=== PATIENT | female | born 1995 | race Caucasian/White ===

== ENCOUNTER 2018-09-10 05:07 | Inpatient (IN) | payer MEDICAID ==
[~2018-09-10] VITALS: Ht 167.6 cm; Wt 98.0 kg
[2018-09-10 05:13] VITALS: Ht 167.6 cm; Wt 98.0 kg
--- NOTE | 2018-09-10 06:30 | NUR ---
PATIENT SEEN WITH COMPLAINT OF LOWER ABDOMINAL PAIN,N/V.D. SEEN BY SALINE LOCK INSERTED. PATIENT MEDICATED WITH ZOFRAN. FLUID BOLUS IS INFUSING.
--- NOTE | 2018-09-10 07:00 | NUR ---
PATIENT WENT TO HAVE CT SCAN DONE
--- NOTE | 2018-09-10 07:03 | NUR ---
PT TO CT TEST AREA VIA STRETCHER,FAHEEM,amalia.awaits test results,reevaluations.
[2018-09-10 07:10] LABS: UA SPECIFIC GRAVITY 1.025 (1.005-1.035); microscopic required? YES; urine erythrocyte 3+ (NEGATIVE)
[2018-09-10 07:12] LABS: PLATELET COUNT 328 x10^3mcL (130-400)
[2018-09-10 07:22] LABS: CARBON DIOXIDE 29.7 mmol/L (21-32); CHLORIDE SERUM 104 mmol/L (98-107); CREATININE SERUM 0.8 mg/dL (0.6-1.0); GFR1 > 60 mL/min; GLUCOSE SERUM 124 mg/dL (74-106); SODIUM SERUM 141 mmol/L (136-145)
--- NOTE | 2018-09-10 07:22 | NUR ---
PT BACK FROM ct test area via maurisio mo nad.mother bedside.awaits reevaluations.
[2018-09-10 07:26] LABS: ALBUMIN 3.9 g/dL (3.4-5.0); ALKALINE PHOSPHATASE 82 U/L (46-116); ALT/SGPT 22 U/L (14-59); AST/SGOT 7 U/L (15-37); BILIRUBIN TOTAL 0.83 mg/dL (0.20-1.00); LIPASE 83 IU/L (73-393)
[2018-09-10 07:27] LABS: AMPHETAMINE QUAL UR NONE DETECTED (See below)
[2018-09-10 07:27] LABS: TOTAL PROTEIN, SERUM 8.4 g/dL (6.4-8.2)
--- NOTE | 2018-09-10 07:38 | NUR ---
RESTING ER # 14 HOB @ 45 DEGREES SR UP,NAD.ASLEEP AT TIMES.AWAITS test results,reevaluations.mother stepped out.
--- NOTE | 2018-09-10 07:42 | NUR ---
airplane charter clerk called for critical ct results.er made aware.
--- NOTE | 2018-09-10 07:55 | NUR ---
er md at bedside for reevaluations.amalia forde.vs as shown.mother bedside.
--- NOTE | 2018-09-10 08:51 | NUR ---
resting er # 14 hob @ 45 degrees sr up,amalia forde.parents at bedside.pt tolerated procedures with no incidents.awaits md consult,reevaluations.
[2018-09-10 09:04] LABS: BAND NEUTROPHIL 3 % (0-10); BASOPHIL 0 % (0-2); MONOCYTE 2 % (0-7); SEGMENTED NEUTROPHILS 92 % (37-75)
[2018-09-10 09:05] LABS: rbc morphology (normal/abnorm) ABNORMAL (NORMAL)
[2018-09-10 09:06] LABS: PLATELET MORPHOLOGY PLATELETS NORMAL
--- NOTE | 2018-09-10 09:14 | NUR ---
med student from surgery at bedside.awakened.awaits reevaluations.
--- NOTE | 2018-09-10 09:38 | NUR ---
AMBULATED TO/FROM BATHROOM WITH mother with no problems.iv meds resumed.pt tolerated procedures with no incidents.amalia forde.awaits reevaluations.
--- NOTE | 2018-09-10 10:05 | NUR ---
resting asleep at times,mother bedside,nad.iv meds infusing well via iv pump.pt tolerated procedures with no incidents.awaits o.r./surgery motor transport inspector/tech.
--- NOTE | 2018-09-10 10:12 | NUR ---
PT ENDORSED TO/ACCEPTED BY TANIA RN,ROOM 232B PRIMARY RN.
--- NOTE | 2018-09-10 10:45 | NUR ---
TO ROOM 232 B VIA WHEELCHAIR,ARLYN MAYEN.MOTHER AND ADULT FEMALE RELATIVE WITH PT.AWAITS REEVALUATIOONS.
--- NOTE | 2018-09-10 10:49 | NUR ---
PT ENDORSED TO/ACCEPTED BY ROMANA GARCIA FROM SURGERY SUITE.
[2018-09-10 11:06] VITALS: BP 107/51
--- NOTE | 2018-09-10 11:22 | NUR ---
AT 1100 - RECEIVED PATIENT FROM ER NURSE. SETTLED IN ROOM, ORIENTED TO SURROUNDINGS. ADMITTED WITH ABDOMINAL PAIN AND DX OF APPENDECITIS FOR LAP APPY. HISTORY OBTAINED FROM MYTENT. MOTHER AND SISTER AT BEDSIDE. CONSNET FOR LAPAROSCOPIC APPENDECTOMY, POSSIBLE OPEN, SIGNED BY PATIENT. CHLORHEXIDINE BODY WIPES SKIN PREP DONE. PATIENT PREPARED FOR SURGERY. AT 1122 - TAKEN TO OR.
--- NOTE | 2018-09-10 13:37 | NUR ---
SPOKE WITH DR JORDAN. SHE WILL GO AND SPEKA WITH PATIENT AND SON REGARDING THE COUGHING OF BLOOD.
--- NOTE | 2018-09-10 13:39 | NUR ---
RECEIVED PT FROM OR, PT IS VERY DROWSY AT THIS MOMENT BUT ABLE TO ANSWER THE QUESTION WHILE AWAKE, LUNG SOUND CLEAR BILATERAL, NO S/S OF SOB, BOWEL SOUND ABCSENT. THERE ARE 4 BANDAID AT ABD, NO BLEEDING, PT C/O MILD PAIN AT THIS MOMENT. IV AT RIGHT AC, DRESSING INTACT. ALL ADLS ASSIST, ALL NEED MET, FAMILY AT BEDSIDE, WILL CONTINUE TO MONITOR THE PT.
[2018-09-10 13:42] VITALS: BP 90/50
--- NOTE | 2018-09-10 15:18 | NUR ---
AT 1350 - IV INFUSION OF D5 NS COMMENCED AT 80 ML/HR. NO C/O PAIN. DRESSINGS DRY AND INTACT. PATIENT TAKING SMALL SIPS CLEAR LIQUIDS PO. FAMILY AT BEDSIDE AND ATTENTIVE TO PATIENT.
--- NOTE | 2018-09-10 15:51 | NUR ---
NASAL SWAB FOR MRSA COLLECTED AND TAKEN TO LAB. PATIENT RESTING QUIETLY. NO C/O PAIN. SCDS TO BLE IN PLACE.
[2018-09-10 17:33] VITALS: BP 103/55
--- NOTE | 2018-09-10 17:50 | NUR ---
SITTING UP INB ED FOR DINNER. TOLERATING CLEAR LIQUID DIET. NO C/O NAUSEA OR VOMITING. REPORTS PAIN UNDER CONTROL. IV INFUSING D5NS AT 80 ML/HR. HAS NOT VOIDED POST OP YET. FAMILY AT BEDSIDE.WILL ENDORSE CARE TO NIGHT NURSE.
--- NOTE | 2018-09-10 18:20 | NUR ---
PATIENT AMBULATED TO BATHROOM. VOIDED PSOT-OP. NOW BACK IN BED. NOTED SPOTTING ON LLQ BAND-AID. WILL CONTINUE TO MONITOR FOR BLEEDING. VSS. AFEBRILE. MOTHER REMAINS AT BEDSIDE.
[2018-09-10 20:17] VITALS: BP 93/55
--- NOTE | 2018-09-10 20:18 | NUR ---
RECIEVED PT FROM DAY NURSE. PT RESTING IN BED. DENIES PAIN AT THIS TIME. AOX4, CALM AND COOPERATIVE. M/S, DENIES CP,N/V, DIZZINESS AND PALPATIONS. ABD SOFT AND ROUND, DENIES PASSING GAS, STATES IS BURPING. AMBULATES WELL. 4 BANDAIDS OVER SURGICAL INCISION SITES. CDI. RAC IV. CDI AND INFUSING. BED AT LOWEST POSITION. CALL LIGHT WITHIN REACH. WILL CONTINUE TO MONITOR.
--- NOTE | 2018-09-10 21:10 | NUR ---
PT COMPLAIINING OF 5/10 LLQ PAIN. MEDICATED PT WITH PRN NORCO. WILL MONITOR.
--- NOTE | 2018-09-11 00:19 | NUR ---
PT RESTING IN BED COMFORTABLY. NO S/S OF PAIN AT THIS TIME. BREATHING EVEN AND UNLABORED. MOTHER AT BEDSIDE. BED AT LOWEST POSITION. CALL LIGHT WITHIN REACH. WILL CONTINUE TO MONITOR.
--- NOTE | 2018-09-11 02:56 | NUR ---
PT COMPLAINING OF MILD HEADACHE. MEDICATED WITH PRN TYLENOL. WILL CONTINUE TO MONITOR.
--- NOTE | 2018-09-11 04:25 | NUR ---
PT RESTING IN BED COMFORTABLY, NO S/S OF PAIN AT THIS TIME. BREATHING EVEN AND UNLABORED. CALL LIGHT WITHIN REACH. WILL CONTINUE TO MONITOR.
[2018-09-11 05:38] VITALS: BP 103/60
--- NOTE | 2018-09-11 06:10 | NUR ---
PT RESTING IN BED COMFORTABLY, MOTHER AT BEDSIDE. COMPLAINING OF SLIGHT RLQ PAIN, DENIES NEED FOR PAIN MEDS AT THIS TIME. BREATHING EVEN AND UNLLABORED. NO ACUTE DISTRESS NOTED. SURGICAL INCISION BANDAID CDI. IV TO RAC CDI, INFUSING. BED AT LOWEST POSITION. CALL LIGHT WITHIN REACH. WILL ENDORSE TO DAY NURSE.
[2018-09-11 06:51] LABS: CALCIUM 7.9 mg/dL (8.5-10.1); CARBON DIOXIDE 24.7 mmol/L (21-32); CHLORIDE SERUM 106 mmol/L (98-107); CREATININE SERUM 0.9 mg/dL (0.6-1.0); GFR1 > 60 mL/min; GLUCOSE SERUM 95 mg/dL (74-106); POTASSIUM SERUM 3.4 mmol/L (3.5-5.1); SODIUM SERUM 140 mmol/L (136-145)
[2018-09-11 07:07] LABS: BASOPHIL % 0.6 % (0-2); PLATELET COUNT 267 x10^3mcL (130-400); RED CELL DISTRIBUTION WIDTH 13.1 % (11.5-14.5)
--- NOTE | 2018-09-11 07:58 | NUR ---
AT 0715 - RECEIVED PATIENT FROM NIGHT NURSE. SITTING IN CHAIR. NO C/O PAIN AT THIS TIME. IV INFUSING D5NS AT 80 ML/HR. NO NEW BLEEDING ON SURGICAL DRESSINGS. MOTHER AT BEDSIDE. AT 0745 - EATING CLEAR LIQUID BREAKFAST. PATIENT REPROTS PASSING GAS. ENCOURAGED TO AMBULATE AND USE INSENTIVE SPIROMETER.
[2018-09-11 09:20] VITALS: BP 100/52
[2018-09-11 12:28] VITALS: BP 99/56
--- NOTE | 2018-09-11 12:38 | NUR ---
AT 0940 - C/O NAUSEA. MEDICATED WITH ZOFRAN PER EMAR. ALSO GIVEN NORCO FOR MILD ABDOMINAL PAIN. PATIENT C/O CHILLS. CURRENT TEMP 98.5 AT 1100 - RESTING QUIETLY. FAMILY AT BEDSIDE. AT 1230 - PATIENT HAS BEEN AMBULATING IN HALLWAY. NO FURTHER NAUSEA. TEMP NOW 102.4. CALL PLACED FOR [employer] DEVELOPER [employer] TO NOTIFY. COOLING NMEASURES APPLIED - COOL ROOM AND ICE PACKS. PATIENT'S MOTHER REPORTS THAT PATIENT HAD A SEIZURE WHEN SHE WAS YOUNG DUE TO FEVER AND MOTHER IS CONCERNED ABOUT FEVER. AT 1235 - RECEIVED ORDERS FOR TORADOL AND BLOOD CULTURES.
--- NOTE | 2018-09-11 12:52 | NUR ---
MEDICATED WITH TORADOL PER EMAR. BLOOD BEING DRAWN FOR BLOOD CULTURES.
[2018-09-11 13:57] VITALS: BP 98/47
--- NOTE | 2018-09-11 13:59 | NUR ---
TEMP NOW 100.0. PATIENT RESTING QUIETLY. COOLING MEASURES STIL IN PALCE.
--- NOTE | 2018-09-11 15:12 | NUR ---
PATIENT REPORTS FEELING BETTER. TOLERATING FULL LIQUID DIET WITHOUT ANY NAUSEA OR VOMITING.
[2018-09-11 16:42] VITALS: BP 94/40
--- NOTE | 2018-09-11 18:08 | NUR ---
PATIENT C/O CHILLS AGAIN. TEMP 100.9. MEDICATED WITH TYLANOL PER EMAR. BP 98/54. HR 103. CHARGE NURSE CONTACTED DR FERRERA. HE WILL REVIEW FOR POSSIBLE SEPSIS. NO C/O ABDOMINAL PAIN. ABDOMEN SOFT BUT DISTENDED, NOT PASSING GAS THIS PM. NO NAUSEA OR VOMITING. TOLERATING FULL LIQUID DIET. IV INFUSING D5NS AT 50 ML/HR. AMBULATES TO BATHROOM FOR TOILET NEEDS. FAMILY IN ROOM AND ATTENTIVE TO PATIENT. WILL ENDORSE CARE TO NIGHT NURSE.
--- NOTE | 2018-09-11 19:00 | NUR ---
PT RECEIVED FROM THE DAY SHIFT RN, PT IS ALERT AND ORIENTED X4, CALM AND COOEPRATIVE WITH CARE. BANDAGES IN PLACE ON THE ABDOMEN X4, BANDAGES ARE CDI, PT STATES BLOATED FEELING IN HER ABDOMEN, PT STATES NO PAIN AT THIS TIME, BUT THERE IS PAIN WITH MOVEMENT, BUT WITH MOVEMENT PAIN IS A 2/10. FAMILY IS AT THE BEDSIDE, SAFETY AND COMFORT MEASURES MAINTAINED, BED IN LOWEST POSITION, CALL LIGHT WITHIN REACH.
--- NOTE | 2018-09-11 19:54 | NUR ---
DR FERRERA MADE AWARE OF TEMPERATURE 101.5. PER DR FERRERA NO FURTHER ORDERS GIVEN. COOLING MEASURES IN PLACE AND WILL MEDICATE WITH TORADOL.
[2018-09-11 20:11] VITALS: BP 103/65
--- NOTE | 2018-09-12 01:25 | NUR ---
PT IS RESTING IN BED WITH EYES CLOSED, NO ACUTE DISTRESS NOTED. NO S/S OF PAIN NOTED. PT HAS BEEN CALM AND COOPERATIVE WITH CARE, MOTHER IS AT THE BEDSIDE. PT HAS BEEN ALERT AND ORIENTED X4, SAFETY AND COMFORT MEASURES MAINTAINED, BED IN LOWEST POSITION, CALL LIGHT WITHIN REACH.
--- NOTE | 2018-09-12 05:21 | NUR ---
PT HAS RESTED IN LONG INTERVALS THROUGHOUT THE SHIFT. PT HAS BEEN CALM AND COOPERATIVE WITH CARE. NO ACUTE DISTRESS NOTED. PT MOTHER IS AT THE BEDSIDE. IV INFUSING D5 NS AT 80ML/HR AT THIS TIME. SAFETY AND COMFORT MEASURES MAINTAINED, BED IN LOWEST POSITION, CALL LIGHT WITHIN REACH, ALL QUESTIONS AND CONCERNS ADDRESSED, WILL ENDORSE CONTINUITY OF CARE TO THE ONCOMING RN.
[2018-09-12 05:38] VITALS: BP 124/71
--- NOTE | 2018-09-12 07:23 | NUR ---
PATIENT A/OX4, ABLE TO MAKE NEEDS KNOWN AND FOLLOW COMMANDS. DENIES HEADACHE, CP OR FEELING SOB. LUNGS CTA, NO RESP DISTRESS NOTED ON RA, BREATHING E/U. PERIPHERAL PULSES PALPABLE, NO EDEMA. BOWEL SOUNDS ACTIVE, LAST BM REPORTED LAST NIGHT X2, DENIES N/V/DIARREA, ADMITSS TO PASSING GAS. ABD SOFT WITH X4 INCISIONS, BANDAGES CHANGED, CDI. DENIES PAIN AT REST AT THIS TIME. IV SITE WNL, NO REDNESS/SWELLING. PATIENT SITTING AT EDGE OF BED, BED AT LOWEST POSITION, MOTHER AT BEDSIDE. CALL LIGHT WITHIN REACH.
[2018-09-12 08:18] VITALS: BP 105/56
--- NOTE | 2018-09-12 08:46 | NUR ---
PATIENT EATING FULL LIQUID BREAKFAST MEAL, REPORTS FEELING MILD PAIN AND NAUSEA BUT GOING AWAY AFTER DRINKING MILK. INFORMED PATIENT IF IT DOESNT GO AWAY OR IF IT WORSENS, WILL ADMINISTER MEDICATIONS FOR PAIN AND NAUSEA. ANNE VERBALIZED UNDERSTANDING. TEMP THIS AM 99.6. DENIES FEELINGS CHILLS. WILL CONT TO MONITOR.
[2018-09-12 09:40] LABS: CALCIUM 8.1 mg/dL (8.5-10.1); CARBON DIOXIDE 24.1 mmol/L (21-32); CHLORIDE SERUM 106 mmol/L (98-107); CREATININE SERUM 0.8 mg/dL (0.6-1.0); GFR1 > 60 mL/min; GLUCOSE SERUM 80 mg/dL (74-106); POTASSIUM SERUM 3.4 mmol/L (3.5-5.1); SODIUM SERUM 140 mmol/L (136-145)
[2018-09-12 09:45] LABS: PLATELET COUNT 234 x10^3mcL (130-400); RED CELL DISTRIBUTION WIDTH 13.1 % (11.5-14.5)
[2018-09-12 11:13] LABS: BAND NEUTROPHIL 8 % (0-10); BASOPHIL 0 % (0-2); MONOCYTE 1 % (0-7); SEGMENTED NEUTROPHILS 75 % (37-75)
[2018-09-12 11:16] LABS: PLATELET MORPHOLOGY PLATELETS NORMAL
--- NOTE | 2018-09-12 13:45 | NUR ---
PATIENT TOLERATED LUNCH MEAL WELL, DENIES PAIN OR NAUSEA. SITTING UP ON CHAIR, FAMILY AT BEDSIDE. NO SIGN OF ACUTE DISTRESS.
[2018-09-12 16:43] VITALS: BP 107/54
--- NOTE | 2018-09-12 18:30 | NUR ---
PATIENT TOLERATED DINNER MEAL WELL, DENIES ABD PAIN OR NAUSEA. ADMITS TO PASSING GAS TODAY AND HAD 4-5 LOOSE BM'S THIS MORNING, DENIES DIARRHEA. ABD SOFT, INCISIONS X4 W/ BANDAIDS CDI. UTILIZING INCENTIVE SPIROMETER ADEQUATELY AND REINFORCED. CALL LIGHT WITHIN REACH. WILL CONT TO MONITOR AND ENDORSE TO NOC NURSE.
--- NOTE | 2018-09-12 20:04 | NUR ---
PT RECIEVED FROM DAY NURSE, PT RESTING IN CHAIR COMFORTABLY. DENIES PAIN AT THIS TIME. S/P LAP APPY, POST OP DAY 2. MED/SURG PT. DENIES CP, N/V, DIZZINESS, AND PALPATATIONS. BREATHING E/U ON RA. DENIES SOB. ABD SOFT AND ROUND, DENIES PAIN TO PALPATATION. X4 SURGICAL INCISIONS CDI WITH BANDAIDS. ALL QUESTIONS AND CONCERNS ADDRESSED. BED AT LOWEST POSITION. CALL LIGHT WITHIN REACH. WILL CONTINUE TO MONITOR.
[2018-09-12 20:42] VITALS: BP 99/64
--- NOTE | 2018-09-12 23:30 | NUR ---
PT COMPLAINING OF 6/10 PAIN AT SURGICAL SITE. MEDICATED PT WITH PRN NORCO. WILL CONTINUE TO MONITOR.
--- NOTE | 2018-09-13 | NUR ---
PT RESTING IN BED COMFORTABLY. NO S/S OF PAIN AT THIS TIME. BREATHING E/U ON RA. NO SIGNS OF ACUTE DISTRESS AT THIS TIME. BED AT LOWEST POSITION. CALL LIGHT WITHIN REACH. WILL CONTINUE TO MONITOR.
[2018-09-13 05:56] VITALS: BP 103/51
--- NOTE | 2018-09-13 06:33 | NUR ---
PT RESTING IN BED COMFORTABLY. NO S/S OF PAIN ARE DISTRESS AT THIS TIME. BREATHING E/U. NO SIGNS OF ACUTE DISTRESS. ALL QUESTIONS AND CONCERNS ADDRESSED. BED AT LOWEST POSITION. CALL LIGHT WITHIN REACH. WILL ENDORSE TO DAY NURSE.
--- NOTE | 2018-09-13 07:25 | NUR ---
RECEIVED PT SITTING UP IN BSC. PT IS A/A/OX4 DENIES FAYE. RESP EVEN AND UNLABORED WITH CLEAR BS BILAT. DENIES ANY SOB/CP/PRESSURE AT THIS TIME. AB SOFT, TENDER TO TOUCH WITH ACTIVE BSX4. DENIES ANY N/V AT THIS TIME. S/P LAP APPY POD3. ON FULL LIQUID DIET, TOLERATED WELL. PASSING GAS. AMBULATORY. CALL LIGHT IN REACH NEEDS ATTENDED TO.
[2018-09-13 08:56] VITALS: BP 103/58
[2018-09-13] MEDS ORDERED: NORCO1 TA2 PO (09:21)
[2018-09-13] MEDS ORDERED: IBUPROFEN400 MG PO (09:22)
[2018-09-13 10:44] VITALS: BP 103/58
[2018-09-13 12:57] VITALS: BP 103/58
--- NOTE | 2018-09-13 13:10 | NUR ---
PT PROVIDED WITH D/C HOME INSTRUCTIONS. GIVEN MEDICATION/PRESCRIPTION EDUCATION. MADE AWARE OF NEED TO CALL DR. KU'S OFFICE TODAY TO SCHEDULE F/U APPT WITH IN 1 WEEK PER MD INSTRUCTIONS. PT ALSO TO F/U WITH PCP WITH IN 1 WEEK. PT GIVEN POST OP CARE INSTRUCTIONS INCLUDING SX SITE CARE. CHANGED BANDAIDS AND OBTAINED PICTURE. PT INSTRUCTED TO KEEP AREA CLEAN AND DRY AND OPEN TO RA ONCE SHE SHOWERS TONIGHT. PT VERBALIZED UNDERSTANDING OF INSTRUCTIONS. IV D/C'D AT THIS TIME. PT'S MOTHER HAD CONCERN WHETHER OR NOT PT HAD AN APPLICATION WITH FOR EMERGENCY MEDICAL. SPOKE WITH TO HAVE THEM MEET WITH ROSY DUNCAN COMMING IN AFTER 1430. PT VERBALIZE SHE WOULD WAIT TO SPEAK WITH [facility] PRIOR TO D/C. CONT TO MONITOR.
--- NOTE | 2018-09-13 14:31 | NUR ---
Discount pharmacy card and list to low cost medical clinics given to patient by Mango Nichols.
--- NOTE | 2018-09-13 15:26 | NUR ---
PT LEFT FACILITY WITH ALL PERSONAL BELONGINGS IN HAND FREE OF ANY APPARENT DISTRESS.
== END 2018-09-13 15:27 | disposition home or self-care (01) | DRG 340 ==
LOC: ED 05:07 → MU 09:24
PROVIDERS: Emergency Medicine; Surgery; ADMIT Internal Medicine
PROC: 0DTJ4ZZ Resection of Appendix, Percutaneous Endoscopic Approach (ICD-10-PCS; principal; 2018-09-10 12:00)
DX: K35.32 Acute appendicitis with perforation, localized peritonitis, and gangrene, without abscess (principal); D72.829 Elevated white blood cell count, unspecified; E66.9 Obesity, unspecified; Z68.34 Body mass index [BMI] 34.0-34.9, adult; Z71.3 Dietary counseling and surveillance; D30.02 Benign neoplasm of left kidney; D30.01 Benign neoplasm of right kidney
CPT/HCPCS: 94150; G0378; J0295; J0330; J0690; J1170; J1885; J2405; J2543; J2704; J2710; J3010; J3490; J7030; J7042; J7120; Q9967